=== PATIENT | female | born 1990 | race Caucasian/White ===

== ENCOUNTER → 2018-07-16 | Outpatient (CLI) | payer OTHER ==
--- NOTE | 2018-07-16 16:05 | RADIOLOGY IMAGING REPORT ---
FACILITY: [facility] PATIENT NAME: STACY FELIPE : [id number] MR: [id number] V: [id number] EXAM DATE: ORDERING PHYSICIAN: BRIELLE BETANCOURT TECHNOLOGIST: Jose San RDMS, RDNAI PROCEDURE:US LEFT BREAST COMPLETE COMPARISON:None. INDICATIONS:LT BREAST LUMP LOWER OUTER QUADRANT FINDINGS: In the 5 o'clock position of the Left breast 4cm from the nipple is a 5.1 x 5.36 x 1.22cm heterogeneous hypoechoic mass the mass sits on the anterior chest wall. No definite acoustic shadowing is seen. In the 12 o'clock position of the Left breast 3cm from the nipple is a 9.4 x 8.5 x 2.5mm cyst. In the 7 o'clock position of the Left breast 3cm from the nipple is a 4.5 x 8.8 x 1.9mm cyst. DIAGNOSTIC CATEGORY 4--SUSPICIOUS FOR MALIGNANCY. RECOMMENDATIONS: ULTRASOUND-GUIDED CORE BIOPSY: LEFT BREAST. IMPRESSION: BIRADS 4: Suspicious for malignancy. In the 5 o'clock position of the Left breast is a 5.1 x 5.4 x 1.2cm heterogeneous solid hypoechoic mass for which Ultrasound guided core biopsy is recommended. Dictated by: Kenya Villegas M.D. on 07/16/2018 at 14:16 Transcribed by: CANELO on 07/16/2018 at 14:37 Approved by: Kenya Villegas M.D. on 07/16/2018 at 16:04 [facility]
== END ==
LOC: US 10:02
PROVIDERS: ATTEND Nurse Practitioner Family
DX: N63.23 Unspecified lump in the left breast, lower outer quadrant (principal); N63.22 Unspecified lump in the left breast, upper inner quadrant; N63.21 Unspecified lump in the left breast, upper outer quadrant

== ENCOUNTER 2018-07-29 14:51 | Outpatient (RCR) | payer OTHER ==
[2018-07-29 15:23] LABS: INR 0.96
--- NOTE | 2018-07-31 09:06 | RADIOLOGY IMAGING REPORT ---
FACILITY: [facility] PATIENT NAME: STACY FELIPE : [id number] MR: [id number] V: [id number] EXAM DATE: [id number] ORDERING PHYSICIAN: BRIELLE BETANCOURT TECHNOLOGIST: Jose San RDMS, YASHIRA PROCEDURE: BIOPSY LEFT BREAST COMPARISON: None. INDICATIONS: LT BREAST MASS FINDINGS: Informed consent was obtained. The patient's Left breast was prepped and draped in the usual sterile fashion. Local anesthesia was accomplished with 1% lidocaine. Utilizing sonographic guidance 3-12 Gauge core biopsies were obtained through the hypoechoic mass in the 5 o'clock position of the Left breast. The samples were placed in formalin shown to the patient and sent to the laboratory for evaluation. A biopsy clip was placed in the biopsy site. The procedure was accomplished without apparent complication. The post Ultrasound guided biopsy Left mammogram demonstrated the biopsy clip to be located in the approximate 5 o'clock position of the Left breast. IMPRESSION: Successful sonographically guided Left breast biopsy of the hypoechoic mass 5 o'clock position pathology results are pending. Dictated by: Kenya Villegas M.D. on 07/30/2018 at 16:18 Transcribed by: CANELO on 07/31/2018 at 8:43 Approved by: Kenya Villegas M.D. on 07/31/2018 at 9:05 [facility]
--- NOTE | 2018-07-31 09:06 | RADIOLOGY IMAGING REPORT ---
FACILITY: [facility] [place] PATIENT NAME: STACY FELIPE : [id number] MR: [id number] V: [id number] EXAM DATE: [id number] ORDERING PHYSICIAN: BRIELLE BETANCOURT TECHNOLOGIST: Jose San RDMS, YASHIRA PROCEDURE: BIOPSY LEFT BREAST COMPARISON: None. INDICATIONS: LT BREAST MASS FINDINGS: Informed consent was obtained. The patient's Left breast was prepped and draped in the usual sterile fashion. Local anesthesia was accomplished with 1% lidocaine. Utilizing sonographic guidance 3-12 Gauge core biopsies were obtained through the hypoechoic mass in the 5 o'clock position of the Left breast. The samples were placed in formalin shown to the patient and sent to the laboratory for evaluation. A biopsy clip was placed in the biopsy site. The procedure was accomplished without apparent complication. The post Ultrasound guided biopsy Left mammogram demonstrated the biopsy clip to be located in the approximate 5 o'clock position of the Left breast. IMPRESSION: Successful sonographically guided Left breast biopsy of the hypoechoic mass 5 o'clock position pathology results are pending. Dictated by: Kenya Villegas M.D. on 07/30/2018 at 16:18 Transcribed by: CANELO on 07/31/2018 at 8:43 Approved by: Kenya Villegas M.D. on 07/31/2018 at 9:05 [facility]
== END 2018-07-30 18:00 | disposition home or self-care (01) ==
LOC: US 14:51 → EDSTATUS 07-30 14:51 → US 07-30 18:00
PROVIDERS: ATTEND Nurse Practitioner Family
DX: Z01.818 Encounter for other preprocedural examination (principal); N63.23 Unspecified lump in the left breast, lower outer quadrant
CPT/HCPCS: 19083; 36415; 77061; 77065; 85610; 88305; 88344